=== PATIENT | female | born 1970 | race Hispanic/Latino ===

== ENCOUNTER 2018-08-14 13:37 | Emergency (ER) | payer OTHER, SELFPAY ==
--- NOTE | 2018-08-14 14:52 | ER ---
Nurse's Notes [facility] Name: Yovana Ordaz Age: 48 yrs Sex: Female : 1970 Arrival Date: 08/14/2018 Time: 13:40 Bed 23 Private MD: Diagnosis: Elevated blood-pressure reading, without diagnosis of hypertension Presentation: 08/14 13:45 Presenting complaint: Patient states: [place]raini speaking only: my blood pressure is high hj today, came from the dentist and they told me my BP is high, they didn't tell me the reading; denies N/V, denies headache;. Transition of care: patient was not received from another setting of care. Onset of symptoms was August 14, 2018. Risk Assessment: Do you want to hurt yourself or someone else? Patient reports no desire to harm self or others. Initial Sepsis Screen: Does the patient meet any 2 criteria? No. Patient's initial sepsis screen is negative. Does the patient have a suspected source of infection? No. Patient's initial sepsis screen is negative. Care prior to arrival: None. 13:45 Method Of Arrival: Ambulatory 13:45 Acuity: STIVEN 4 hj Triage Assessment: 13:50 General: Appears in no apparent distress. uncomfortable, Behavior is calm, cooperative, hj appropriate for age. Pain: Denies pain. 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 - Social history:: Smoking status: Patient/guardian denies using tobacco, Patient/guardian denies using alcohol. - Ebola Screening: : Patient negative for fever greater than or equal to 101.5 degrees Fahrenheit, and additional compatible Ebola Virus Disease symptoms Patient denies exposure to infectious person Patient denies travel to an Ebola-affected area in the 21 days before illness onset. Screenin:50 Abuse screen: Denies threats or abuse. Denies injuries from another. Nutritional hj screening: No deficits noted. Tuberculosis screening: No symptoms or risk factors identified. Fall Risk None identified. Assessment: 14:49 Reassessment: Carroll STAHL, performing medical screening. tl3 Vital Signs: 13:50 BP 166 / 85; Pulse 74; Resp 18; Temp 98.8(O); Pulse Ox 100% on R/A; Weight 80.29 kg; hj Height 5 ft. 2 in. (157.48 cm); 13:50 Body Mass Index 32.38 (80.29 kg, 157.48 cm) ED Course: 13:40 Patient arrived in ED. mr 13:49 Triage completed. hj 13:50 Arm band placed on left wrist. hj 13:50 Patient has correct armband on for positive identification. Bed in low position. Call light in reach. Side rails up X 1. Adult w/ patient. 14:21 Carroll Arteaga PA is PHCP. cp 14:21 Marco Antonio Suarez MD is Attending Physician. cp 14:25 Fabby Lovett, BRITTNEY is Primary Nurse. tl3 15:01 No provider procedures requiring assistance completed. Patient did not have IV access tl3 during this emergency room visit. Administered Medications: No medications were administered Outcome: 14:52 Discharge ordered by . cp 15:06 Patient left the ED. tl3 15:06 Medical screen evaluation completed per provider. pt screened and discharged by Carroll tl3 Page 15:06 Condition: stable 15:06 Following a medical screening exam, the patient was provided information regarding alternative care sites and resources available per registration personnel. Signatures: Trish Saleh TayeDayton RN RN Carroll Vazquez PA PA cp Fabby Lovett, RN RN tl3 Corrections: (The following items were deleted from the chart) 13:53 13:50 Pulse 74bpm; Resp 18bpm; Pulse Ox 100% RA; Temp 98.8F Oral; 80.29 kg; Height 5 hj ft. 2 in.; BMI: 32.3; hj 13:54 13:45 Acuity: STIVEN 3 hj hj 13:57 13:45 Acuity: STIVEN 4 hj hj 14:52 13:45 Acuity: STIVEN 3 hj hj
--- NOTE | 2018-08-14 14:52 | EDPHYS ---
Physician Documentation [facility] Name: Yovana Ordaz Age: 48 yrs Sex: Female : 1970 Arrival Date: 08/14/2018 Time: 13:40 Bed 23 Private MD: ED Physician Marco Antonio Suarez HPI: 08/14 14:47 This 48 yrs old Female presents to ER via Ambulatory with complaints of High cp Blood Pressure. 14:47 The patient has elevated blood pressure and discovered this dentist office. Onset: The cp symptoms/episode began/occurred today. Associated signs and symptoms: The patient has no apparent associated signs or symptoms. Patient with no complaints. Reports she was referred to ED for elevated blood pressure. Patient denies history of hypertension. 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 - Social history:: Smoking status: Patient/guardian denies using tobacco, Patient/guardian denies using alcohol. - Ebola Screening: : Patient negative for fever greater than or equal to 101.5 degrees Fahrenheit, and additional compatible Ebola Virus Disease symptoms Patient denies exposure to infectious person Patient denies travel to an Ebola-affected area in the 21 days before illness onset. ROS: 14:49 All other systems are negative. cp Exam: 14:49 Head/Face: Normocephalic, atraumatic. cp 14:49 Constitutional: The patient appears in no acute distress, alert, awake, non-toxic, well developed, well nourished, overweight 14:49 Eyes: Periorbital structures: appear normal, Conjunctiva: normal, no exudate, no injection, Lids and lashes: appear normal, bilaterally. 14:49 ENT: External ear(s): are unremarkable, Nose: is normal, Mouth: is normal. 14:49 Chest/axilla: Inspection: normal. 14:49 Cardiovascular: Rate: normal. 14:49 Respiratory: the patient does not display signs of respiratory distress, Respirations: normal, no use of accessory muscles, no retractions, no splinting, no tachypnea. 14:49 Abdomen/GI: Inspection: abdomen appears normal. 14:49 Neuro: Orientation: to person, place \T\ time. Mentation: is normal, Motor: moves all fours, strength is normal, Gait: is steady. Vital Signs: 13:50 BP 166 / 85; Pulse 74; Resp 18; Temp 98.8(O); Pulse Ox 100% on R/A; Weight 80.29 kg; Height 5 ft. 2 in. (157.48 cm); 13:50 Body Mass Index 32.38 (80.29 kg, 157.48 cm) MDM: 14:21 Patient medically screened. cp 14:51 Data reviewed: vital signs, nurses notes. cp Administered Medications: No medications were administered Disposition: 15:10 Chart complete. cp 15:11 Co-signature as Attending Physician, Marco Antonio Suarez MD. Disposition: 08/14/18 14:52 Discharged to Home as Medical Screen. Impression: Elevated blood-pressure reading, without diagnosis of hypertension. - Condition is Stable. - Discharge Instructions: How to Take Your Blood Pressure, [id number], Form - Blood Pressure Record Sheet. - Medication Reconciliation Form, Thank You Letter, Antibiotic Education, Prescription Opioid Use form. - Follow up: Private Physician; When: 2 - 3 days; Reason: blood pressure recheck. - Problem is new. - Symptoms are unchanged. Signatures: Dayton Kothari RN RN Carroll Arteaga PA PA cp Starr, Gregory, MD MD Fabby Lovett RN RN tl3 Corrections: (The following items were deleted from the chart) 15:06 14:52 08/14/2018 14:52 Discharged to Home as Medical Screen. Impression: Elevated tl3 blood-pressure reading, without diagnosis of hypertension. Condition is Stable. Forms are Medication Reconciliation Form, Thank You Letter, Antibiotic Education, Prescription Opioid Use. Follow up: Private Physician; When: 2 - 3 days; Reason: blood pressure recheck. Problem is new. Symptoms are unchanged. cp
[2018-08-14 15:37] VITALS: BP 166/85; TEMP 98.8; O2SAT 100
== END 2018-08-14 15:06 | disposition home or self-care (01) ==
LOC: ER 13:37
DX: R03.0 Elevated blood-pressure reading, without diagnosis of hypertension (principal)
CPT/HCPCS: 99281